=== PATIENT | female | born 1965 | race Caucasian/White ===

== ENCOUNTER 2020-04-19 12:06 | Emergency (ER) | payer BC, SELFPAY ==
--- NOTE | ~2020-04-19 | XR_ITS ---
EXAMINATION: XR chest 2V 04/19/2020 12:44 INDICATION: Cough with fever PROCEDURE: 2 view chest COMPARISON: 03/20/2012 FINDINGS: The lungs are clear. The cardiomediastinal silhouette is within normal limits. There are no pleural effusions. There is no pneumothorax suspected. IMPRESSION: 1: NO ACUTE CARDIOPULMONARY DISEASE. Reviewed, dictated and finalized at location B.
[2020-04-19 12:14] VITALS: BP 140/81; PULSE 96; RESP 16; TEMP 36.4; O2SAT 99
--- NOTE | 2020-04-19 13:00 | ED.URI ---
HPI - URI/Sore Throat General Chief Complaint: Upper Respiratory Infection Stated Complaint: congestion/sore throat/cough Time Seen by Provider: 04/19/20 12:25 Source: patient and RN notes reviewed Mode of arrival: ambulatory Limitations: no limitations History of Present Illness HPI Narrative: 54-year-old female who presents to [facility] care with complaints of a 10 days history of sinus drainage and congestion, sore throat, coughing, and fatigue. Patient has had some intermittent chills and fever with the highest temp of 100 degrees F. Patient states that she has had some upper back ache and has had some chest discomfort with cough. Patient states she called her primary care physician and received a prescription for Z-back which she completed today. Patient also states that she has had Covid testing on Wednesday which was negative MD elicited complaint: fever, cough, sore throat, rhinorrhea and nasal congestion Pertinent past history: pneumonia, sinusitis and seasonal allergies Onset (ago): day(s) (10) Consistency: constant Severity: moderate Pain scale (0-10): 5 Description of mucous: clear and yellow (light) Able to tolerate fluids by mouth: Yes Exacerbating factors: swallowing and exertion Relieving factors: NSAID and rest Associated symptoms: fever, rhinorrhea, nasal congestion, sore throat, cough (wheeing) and nausea Treatments prior to arrival: ibuprofen and other (Mucinex DM, claritin, Zithromax from PCP) Related Data Allergies Allergy/AdvReac Type Severity Reaction Status Date / Time No Known Allergies Allergy Mild Unverified 06/11/11 08:39 Review of Systems Review of Systems: Narrative: CONSTITUTIONAL: Positive fevers, chills, or sweats. EYES: Denies visual changes, redness, or discharge. ENT: Positive rhinorrhea, congestion,facial pressure, sore throat, no otalgia. CARDIOVASCULAR: Denies chest pain, reports ache with cough,no palpitations, or edema. RESPIRATORY: positive cough no shortness of breath verbalizes some wheezing noted. GASTROINTESTINAL: Denies abdominal pain, occasional nausea, no vomiting, or diarrhea. GENITOURINARY: Denies dysuria or hematuria. SKIN: Denies rash or itching. MUSCULOSKELETAL: States upper back ache, no acute joint pain, or myalgia. NEUROLOGIC: Denies headache, numbness, or weakness. PSYCHIATRIC: Denies anxiety or depression. All systems reviewed & are unremarkable except as noted in HPI and below PMFSH Past Medical History Medical History (Updated 04/19/20 @ 13:34 by Rebeka Hassan NP) Bronchitis Seasonal allergies Surgical History Surgical History (Updated 04/19/20 @ 13:37 by Rebeka Hassan NP) H/O section History of colon resection History of endometrial ablation History of tubal ligation Hx of appendectomy Family History Family History (Updated 04/19/20 @ 13:38 by Rebeka Hassan NP) Father COPD (chronic obstructive pulmonary disease) Social History Social History (Updated 04/19/20 @ 13:38 by Rebeka Hassan NP) Smoking status: Never smoker Alcohol intake: current Substance use: never Living arrangements: with family Gender identity (if verbalized by the patient): Female Comments At time of signature, agree with nursing past medical, surgical, social and family history. There is no relevant family history pertinent to the presenting complaint Exam Narrative: Exam Narrative: GENERAL: Well-appearing, well-nourished, and in no acute distress. HEAD: Normocephalic, atraumatic. EYES: PERRLA and EOMI. ENT: Nares red,clear rhinorrhea no epistaxis. Mucous membranes moist.TM's intact with dull light reflex, throat mild redness with uvula swollen and pain, no exudates no acute swelling of tonsils,post nasal drainage present. NECK: Supple.no lymphadenopathy CHEST: Clear to auscultation. No respiratory distress.SAO2 99% on room air HEART: Regular rate and rhythm. No murmur heard. Normal peripheral pulses. ABDOMEN: Soft, nontender, nondistended, nor
== END 2020-04-19 13:21 | disposition home or self-care (01) ==
PROVIDERS: Emergency Provider Registered Nurse; PCP Family Medicine Sports Medicine
DX: R05 Cough (principal); J01.40 Acute pansinusitis, unspecified; J06.9 Acute upper respiratory infection, unspecified
CPT/HCPCS: 71046; 87081; 87880; 99213; G0463

== ENCOUNTER 2022-02-17 22:38 | Observation (INO) | payer OTHER, SELFPAY ==
--- NOTE | ~2022-02-17 | XR_ITS ---
EXAMINATION: XR chest 2V DATE: 02/17/2022 23:17 INDICATION: Chest pain. TECHNIQUE: Frontal and lateral views of the chest were obtained. COMPARISON: Chest 2 views 04/19/2020, chest CT 02/18/2022 FINDINGS: The chest demonstrates clear lungs without pneumonia, pleural effusion, or pneumothorax. Th e heart size is normal. IMPRESSION: 1. No acute cardiopulmonary disease. Reviewed, dictated and finalized at location A.
--- NOTE | ~2022-02-17 | CT_ITS ---
EXAMINATION: CTA chest PE protocol DATE: 02/18/2022 01:03 INDICATION: Chest pain. TECHNIQUE: Computed tomography angiography (CTA) of the chest was performed with 100 mL Omnipaque-350 intravenous contrast timed to evaluate the pulmonary arteries. Coronal maximum intensity projection 3D-reconstructions were created by the technologist. Automated exposure control and iterative reconst ruction technique were employed. The dose-length product was 390.18 mGy-cm. COMPARISON: CT abdomen and pelvis 08/16/2018 FINDINGS: The lungs demonstrate mild atelectasis. No pleural effusion. The heart size is normal. No p ericardial effusion. There is no pulmonary embolus. There is mild thoracic spondylosis. There is mild chronic anterior wedging of T7 vertebral body. IMPRESSION: 1. No pulmonary embolus. Reviewed, dictated and finalized at location A. IMPRESSION: 1. No pulmonary embolus.
--- NOTE | 2022-02-17 22:37 | ED.CHESTPAIN ---
HPI - Chest Pain General Chief Complaint: Chest Pain Stated Complaint: cp Source: patient Mode of arrival: ambulatory Limitations: no limitations History of Present Illness HPI narrative: Patient is a 56-year-old female with a history of hyperlipidemia presenting to the emergency department for evaluation of chest pain. Patient reports she had sudden onset acute left-sided chest pain with radiation to the left neck, shoulder, arm. Patient took 3 nitroglycerin tablets at home which did not improve the pain much. Patient was then given Nitropaste in route by EMS which did help alleviate her pain. She was also given 3 baby aspirin. Patient reports she was recently seen by [facility] tearoom host/hostess yesterday, and referred for stress test John. Patient denies history of cardiac event in the past but does report she has had intermittent chest pain at rest over the past 4 weeks. Patient denies leg swelling or calf pain. Denies recent long car or air travel. No history of coagulopathy. She does not smoke. Related Data Allergies Allergy/AdvReac Type Severity Reaction Status Date / Time sulfamethoxazole AdvReac Dizziness Verified 02/17/22 22:54 [From Bactrim] trimethoprim [From Bactrim] AdvReac Dizziness Verified 02/17/22 22:54 Review of Systems Review of Systems: CONSTITUTIONAL: Denies fever, chills, or sweats. EYES: Denies visual changes, redness, or discharge. ENT: Denies rhinorrhea, congestion, sore throat, or otalgia. CARDIOVASCULAR: Reports chest pain, denies palpitations or leg edema RESPIRATORY: Denies cough or dyspnea. GASTROINTESTINAL: Denies abdominal pain, reports nausea without vomiting GENITOURINARY: Denies dysuria or hematuria. SKIN: Denies rash or itching. MUSCULOSKELETAL: Denies back pain, joint pain, or myalgia. NEUROLOGIC: Denies headache, numbness, or weakness. [facility] Past Medical History Medical History Bronchitis Seasonal allergies Surgical History Surgical History H/O section History of colon resection History of endometrial ablation History of tubal ligation Hx of appendectomy Family History Family History Father COPD (chronic obstructive pulmonary disease) Social History Social History Smoking status: Never smoker Alcohol intake: current Substance use: never Gender identity (if verbalized by the patient): Female Exam Narrative: GENERAL: Awake, alert, conversant HEAD: Normocephalic, atraumatic. EYES: PERRLA and EOMI. ENT: Nares clear, no rhinorrhea or epistaxis. Mucous membranes moist. NECK: Supple. CHEST: No respiratory distress, breathing even and non labored, no chest wall tenderness HEART: Regular rate, sinus rhythm ABDOMEN:Non distended, non tender EXTREMITIES: Normal range of motion. No edema. SKIN: Warm, dry, no rash. NEURO:No focal deficits. Alert and oriented x3 Course Vital Signs Vital signs: Vital Signs Temperature 36.5 C 02/17/22 22:41 Pulse Rate 83 02/17/22 22:41 Respiratory Rate 16 02/17/22 22:41 Blood Pressure 130/65 02/17/22 22:41 Pulse Oximetry 97 02/17/22 22:41 Oxygen Delivery Room Air 02/17/22 22:41 Temperature 36.5 C 02/17/22 22:41 Pulse Rate 78 02/18/22 03:34 Respiratory Rate 18 02/18/22 03:34 Blood Pressure 110/61 02/18/22 03:34 Pulse Oximetry 96 02/18/22 03:34 Oxygen Delivery Room Air 02/17/22 22:41 MDM - Chest Pain MDM Narrative Medical decision making narrative: Patient presenting for evaluation of chest pain. At the time of assessment, patient is having active chest pain, EKG without acute ischemic changes but there are some inferior changes and evidence of Q waves inferiorly concerning for previous infarct. IV access obtained and labs are drawn. Labo
--- NOTE | 2022-02-17 22:40 | ECG_ITS ---
Measurements Intervals [place] Rate: 82 P: 43 NM: 135 QRS: 8 QRSD: 82 T: 39 QT: 383 QTc: 448 Interpretive Statements SINUS RHYTHM NORMAL ECG NO PREVIOUS ECG AVAILABLE FOR COMPARISON Electronically Signed On 02-18-2022 16:02:13 CDT by Bryant Estrada M.D.
[2022-02-17 22:41] VITALS: BP 130/65; PULSE 83; RESP 16; TEMP 36.5; O2SAT 97
[2022-02-17 23:04] LABS: Basophils Percent Auto 0.3 % (0.2-1.2); Eosinophils Absolute Auto 0.1 K/mm3 (0-0.3); Eosinophils Percent Auto 1.3 % (0-4.4); Hematocrit 36.4 % (37.0-47.0); Hemoglobin 12.3 g/dL (12.0-15.0); Immature Granulocyte Absolute 0.02 K/mm3 (0.00-0.031); Immature Granulocyte Percent A 0.2 % (0-0.5); Lymphocytes Absolute Auto 2.89 K/mm3 (0.9-3.2); Lymphocytes Percent Auto 30.5 % (18.3-44.2); Mean Corpuscular HGB Conc 33.8 g/dl (32-36); Mean Corpuscular Hemoglobin 30.5 pg (26-34); Mean Corpuscular Volume 90.3 fl (80-100); Mean Platelet Volume 9.4 fl (7.4-10.4); Monocytes Absolute Auto 0.6 K/mm3 (0.1-0.6); Neutrophils Absolute Auto 5.8 K/mm3 (1.3-6.7); Neutrophils Percent Auto 61.7 % (45.5-73.1); Platelet Count Result 369 k/mm3 (150-375); Red Blood Count 4.03 M/mm3 (4.2-5.4); Red Cell Distribution Width 12.9 % (11.5-14.5); White Blood Count 9.5 K/mm3 (4.5-10.0)
[2022-02-17 23:06] VITALS: BP 116/64; PULSE 80; RESP 19; O2SAT 93
[2022-02-17 23:15] LABS: Alanine Aminotransferase 57 U/L (6-35); Albumin Level 4.4 g/dL (3.5-5.1); Alkaline Phosphatase 101 U/L (38-126); Anion Gap 10 mmol/L (8-16); Aspartate Amino Transferase 46 U/L (14-36); Bilirubin,Total 0.8 mg/dL (0.2-1.3); Blood Urea Nitrogen 12 mg/dL (7-17); Calcium 9.4 mg/dL (8.4-10.2); Carbon Dioxide 25 mmol/L (22-30); Chloride 101 mmol/L (98-107); Estimated CRCL calculation 81 ml/min; Estimated Glomerular Filt Rate > 60; Glucose 134 mg/dL (65-110); Lipase 80 U/L (23-300); Potassium 3.8 mmol/L (3.4-5.0); Sodium 136 mmol/L (137-145)
[2022-02-17] MEDS: SODIUM CHLORIDE 0.9% IV 1,000 ML 999 ML IV CONT (23:16)
[2022-02-17] MEDS: ONDANSETRON INJ 4 MG/2 ML VIAL IV PUSH (23:17)
[2022-02-17] MEDS: MORPHINE SULFATE (*CRX) 4 MG/ML INJ IV PUSH (23:18)
[2022-02-17 23:22] VITALS: BP 117/62; PULSE 78; RESP 12; O2SAT 93
[2022-02-17 23:24] LABS: INR 1.1; Prothrombin Time 13.3 Seconds (11.1-14.7)
[2022-02-17 23:25] LABS: Partial Thromboplastin Time 37.1 SECONDS (22.3-36.8)
[2022-02-17 23:26] LABS: Troponin I < 0.012 ng/mL (0.000-0.034)
[2022-02-18] MEDS: KETOROLAC 15 MG/ML VIAL (*BKC) IV PUSH ×2 (01:11→03:31)
[2022-02-18 02:12] LABS: Troponin I < 0.012 ng/mL (0.000-0.034)
[2022-02-18 03:34] VITALS: BP 110/61; PULSE 78; RESP 18; O2SAT 96
[2022-02-18 04:40] VITALS: BP 103/52; PULSE 68; RESP 16; TEMP 36.2; O2SAT 96; BMI 30.2
--- NOTE | 2022-02-18 05:01 | PC.NURSE ---
This patient, Mikaela Garcia, was admitted to IMU Room 214-01. Patient/family oriented to hospital policies and general routines including ID bracelet, bed and alarms, visiting hours, pain management, procedures, bathroom and other care routines, personal items, smoking policy, room service/diet, and visiting hours. Information on how to activate the Rapid Response Team has been discussed. Patient/Family are encouraged to report perceived risks to care and to ask questions if they do not understand what they are told or what they should do.
[2022-02-18 05:41] LABS: Troponin I < 0.012 ng/mL (0.000-0.034)
[2022-02-18 06:00] VITALS: PULSE 68
[2022-02-18 07:51] LABS: Alanine Aminotransferase 48 U/L (6-35); Albumin Level 3.8 g/dL (3.5-5.1); Alkaline Phosphatase 82 U/L (38-126); Anion Gap 6 mmol/L (8-16); Aspartate Amino Transferase 37 U/L (14-36); Bilirubin,Total 0.6 mg/dL (0.2-1.3); Blood Urea Nitrogen 11 mg/dL (7-17); Calcium 8.5 mg/dL (8.4-10.2); Carbon Dioxide 28 mmol/L (22-30); Chloride 103 mmol/L (98-107); Estimated CRCL calculation 83 ml/min; Estimated Glomerular Filt Rate > 60; Glucose 124 mg/dL (65-110); Potassium 3.6 mmol/L (3.4-5.0); Sodium 137 mmol/L (137-145)
[2022-02-18 08:00] VITALS: BP 116/56; PULSE 68; PULSE 75; RESP 14; TEMP 36.4; O2SAT 97
[2022-02-18 08:29] LABS: Glucose Point of Care 113 mg/dl (65-105)
[2022-02-18] MEDS: ACETAMINOPHEN 325 MG TABLET 650 MG PO (08:39)
[2022-02-18] MEDS: PANTOPRAZOLE 40 MG TABLET PO (08:44)
[2022-02-18] MEDS: ASPIRIN 81 MG ENTERIC TABLET PO (08:44)
[2022-02-18] MEDS: FLUoxetine HCL 20 MG CAPSULE PO (08:44)
--- NOTE | 2022-02-18 09:22 | PM.IMHP ---
H&P: HPI History of Present Illness Date/Time: 02/18/22 09:22 Chief Complaint: Chest pain Narrative: Greater than 30 minutes spent reviewing chart, evaluating, treating, counseling patient. Anticipate less than 48 hour admission, will admit under observation. 56-year-old female past medical history of anxiety, hyperlipidemia, DM noninsulin. Presented to [place] 02/17 with chest pain. Patient reports he was sitting down when she began to have sharp chest pain on the left side of her chest. Nonradiating, not associated with any shortness of breath or nausea/vomiting. Patient does report that she felt her stomach was upset prior to the event and she took some Tums. Patient reports she has had some minor ongoing shortness of breath since 11/2021, reports she was diagnosed with COVID at that time. Her PCP sent her to a supervisor mapping, Dr. Herron, at [facility] for further workup. She was scheduled for a stress test this Wednesday. Patient reports she has had chest pain before, but nothing like this. She reports this chest pain was ongoing despite taking nitro and receiving morphine and Toradol. She states this a.m. that her chest pain is very much improved. Patient reports a lot of anxiety at home, her relationship with her is under lot of stress. She was just recently diagnosed with anxiety 2 weeks ago and started on Prozac last week and started seeing a therapist 2 weeks ago. In ED, vitals stable. Labs remarkable for AST/ALT 46/47. Troponin x3 negative, EKG showing normal sinus rhythm. Cardiology consult in ED. Review of Systems Review of Systems: Ten point ROS reviewed, negative unless otherwise specified per [facility] Past Medical History Medical History Bronchitis Seasonal allergies Surgical History Surgical History H/O section History of colon resection History of endometrial ablation History of tubal ligation Hx of appendectomy Family History Family History (Updated 02/18/22 @ 04:51 by Lazara Holm RN) Father COPD (chronic obstructive pulmonary disease) Diabetes mellitus Social History Social History Smoking status: Never smoker Alcohol intake: former Drinks per week: 1 Substance use: never Gender identity (if verbalized by the patient): Female Spiritual care concerns: No Meds Home Medications and Allergies Home Medications Medication Instructions Recorded Confirmed Type fluoxetine 20 mg capsule 20 mg PO DAILY 02/18/22 02/18/22 History metformin 500 mg tablet,extended 1,000 mg PO DAILY 02/18/22 02/18/22 History release 24 hr nitroglycerin 0.4 mg sublingual 0.5 mg sublingual Q5MIN PRN Angina 02/18/22 02/18/22 History tablet pantoprazole 40 mg tablet,delayed 40 mg PO DAILY 02/18/22 02/18/22 History release rosuvastatin 20 mg tablet 20 mg PO HS 02/18/22 02/18/22 History Allergies Allergy/AdvReac Type Severity Reaction Status Date / Time sulfamethoxazole AdvReac Dizziness Verified 02/18/22 04:39 [From Bactrim] trimethoprim [From Bactrim] AdvReac Dizziness Verified 02/18/22 04:39 Vital Signs Vital Signs - 24 hr 02/17/22 22:41 02/17/22 23:06 02/17/22 23:22 Temperature 97.7 F Pulse Rate 83 80 78 Respiratory Rate 16 19 12 Blood Pressure 130/65 116/64 117/62 Pulse Oximetry 97 93 93 Oxygen Delivery Room Air 02/18/22 03:34 02/18/22 04:42 02/18/22 04:40 Temperature 97.1 F L Pulse Rate 78 68 Respiratory Rate 18 16 Blood Pressure 110/61 103/52 L Pulse Oximetry 96 96 Oxygen Delivery Room Air 02/18/22 06:00 02/18/22 08:00 Temperature 97.6 F Pulse Rate 68 68 Respiratory Rate 14 Blood Pressure 116/56 L Pulse Oximetry 97 Oxygen Delivery Exam Const: General: comfortable and no acute distress Eyes: General: appearance normal, both eye
[2022-02-18 09:26] LABS: Magnesium 1.9 mg/dL (1.6-2.3)
[2022-02-18 09:57] LABS: Hemoglobin A1C 6.8 % (<5.7)
[2022-02-18 10:00] VITALS: PULSE 75
--- NOTE | 2022-02-18 10:10 | PM.CNCAR ---
Assessment and Plan Assessment and plan (1) Atypical chest pain: Code(s): R07.89 - Other chest pain Status: Acute Assessment and Plan: Atypical chest pain occurring at rest not associated with exertion with chronic shortness of breath she attributes to history of COVID. She has no prior known history of CAD. She has ruled out for myocardial infarction with serial negative troponin. Twelve EKG is without acute ischemic changes. Patient is asymptomatic at this time and otherwise feels well and at her baseline. We discussed options including proceed with noninvasive ischemic evaluation this hospitalization for discharge to follow-up with her tribal council member with noninvasive stress test as scheduled this Wednesday on an outpatient basis. Patient states she is comfortable for discharge and to follow up with her tribal council member. I reassured the patient given fact that she had several hours of chest pain which was constant prior to admission negative enzymes without acute ischemic EKG changes during that period time the likelihood of her having severe obstructive CAD as explanation is quite low although not impossible given her risk factors. Therefore, I do believe an ischemic evaluation is appropriate but that she is safe for discharge to follow up as an outpatient. Obviously, if her symptoms recur she is to present to the emergency department for further evaluation. She may continue aspirin 81 mg daily for the time being. Stable for discharge home today to follow up with her tribal council member as an outpatient and schedule stress test this Wednesday. All questions answered to her satisfaction. Patient verbalized understanding and agreed with plan of care as outlined. (2) Hyperlipidemia: Qualifiers: Hyperlipidemia type: mixed hyperlipidemia Qualified Code(s): E78.2 - Mixed hyperlipidemia Code(s): E78.5 - Hyperlipidemia, unspecified Status: Acute Assessment and Plan: Continue rosuvastatin 20 mg at bedtime. (3) Diabetes: Code(s): E11.9 - Type 2 diabetes mellitus without complications Status: Acute Assessment and Plan: Management primary service. Continue metformin. (4) Anxiety: Code(s): F41.9 - Anxiety disorder, unspecified Status: Acute Assessment and Plan: Patient admits anxiety may be contributing to some extent as her symptoms are onset with heightened anxiety. I explained while it is likely her anxiety is contributing heightened emotional states can precipitate anginal symptoms with underlying obstructive CAD. Therefore, further assessment is warranted in addition to stress coping strategies in this regard. History of Present Illness History of Present Illness Consult date/time: Date of service: 02/18/22 10:10 Requesting physician: Cole Gunn DO Consult reason: chest pain Reason For Visit: Unstable Angina Narrative: Patient is a pleasant 56-year-old female with a past medical history significant for type 2 diabetes mellitus, hypertension, hyperlipidemia and anxiety who presented to the emergency department with complaints of chest pain. Patient ate she has had difficulty with shortness of breath and chest pain since she had COVID in October and admits to some ongoing fatigue. She states she has had intermittent shortness of breath as well in due to the symptoms was referred to a tribal council member which she for soft last week. Date set her up for a stress test this Wednesday. She describes chest pain is sharp in nature left substernal and upper left location radiating to her shoulder and arm. She denies significant associated shortness of breath, nausea or diaphoresis. She has also had some pain in the right abdomen which has resolved intermittently. Serial troponin negative. Her 12 lead EKG does not reveal acute ischemic changes. She has no prior known history of CAD. She tried 3 sublingual nitroglycerin at home provided by her tribal council member with no relief. She w
[2022-02-18] MEDS: MAGNESIUM OXIDE 400 MG TABLET PO (10:50)
[2022-02-18 12:00] VITALS: BP 116/64; PULSE 70; PULSE 75; RESP 16; TEMP 36.4; O2SAT 95
[2022-02-18 12:43] LABS: Glucose Point of Care 230 mg/dl (65-105)
--- NOTE | 2022-02-18 12:44 | PM.DS ---
DS: Admitting Diagnosis Discharge Date 02/18/2022 Admitting Diagnosis Atypical chest pain DS: Summary Hospital Course Reason for hospitalization: Atypical chest pain Hospital Course: 56-year-old female past medical history of anxiety, hyperlipidemia, DM noninsulin.? Presented to [facility] 02/17 with chest pain.? Patient reports he was sitting down when she began to have sharp chest pain on the left side of her chest.? Nonradiating, not associated with any shortness of breath or nausea/vomiting.? Patient does report that she felt her stomach was upset prior to the event and she took some Tums.? Patient reports she has had some minor ongoing shortness of breath since 11/2021, reports she was diagnosed with COVID at that time.? Her PCP sent her to a program manager slp, Dr. Herron, at [facility] for further workup.? She was scheduled for a stress test this Wednesday.? Patient reports she has had chest pain before, but nothing like this.? She reports this chest pain was ongoing despite taking nitro and receiving morphine and Toradol.? She states this a.m. that her chest pain is very much improved.? Patient reports a lot of anxiety at home, her relationship with her is under lot of stress.? She was just recently diagnosed with anxiety 2 weeks ago and started on Prozac last week and started seeing a therapist 2 weeks ago. In ED, vitals stable.? Labs remarkable for AST/ALT 46/47.? Troponin x3 negative, EKG showing normal sinus rhythm.? Cardiology consult in ED, recommend following up with outpatient program manager slp with stress test scheduled for this Wednesday. Patient was started on aspirin, other home meds continued and discharged home in stable condition. Time Spent with Patient Time attestation: Total time spent providing and/or coordinating discharge services: Exam Narrative: General: Well developed, alert and oriented x3. No apparent distress, comfortable, pleasant, and cooperative. Head: atraumatic, normocephalic Eyes: EOM intact, sclerae anicteric, conjunctivae unremarkable Ears/Nose: external inspection of ears and nose were grossly normal Mouth/Throat: oral mucosa pink and moist Neck: supple, normal range of motion, no jugular venous distention or carotid bruits, thyroid nonpalpable, trachea midline. Cardiac: Regular rate and rhythm, normal S1-S2, no murmurs, clicks, gallops, or rubs. Lungs: Clear to auscultation bilaterally, no rales, wheezes, or rhonchi. Abdomen: Soft, nontender, nondistended, positive bowel sounds throughout. No appreciable hepatosplenomegaly, no rebound guarding or rigidity noted. Abdominal aorta nonpalpable, no appreciable bruits. Extremities: No edema, clubbing, and or cyanosis. Extremities warm and well perfused. Skin: Warm and dry without ecchymoses, rashes, and/or petechiae. Musculoskeletal: Muscle strength and tone intact throughout without obvious deformities. Vascular: Carotid upstrokes 2+ bilaterally, radial pulses 2+ bilaterally, dorsalis pedis pulses 2+ bilaterally, posterior tibialis pulses palpable bilaterally. Neurologic: Cranial nerves 2-12 grossly intact, examination grossly nonfocal Psychiatric: Mood calm and appropriate. DS: Data Data Completed and Pending Labs on day of discharge: Labs from last 24 hours 02/18/22 02/18/22 02/18/22 12:11 08:25 04:58 WBC RBC Hgb Hct MCV MCH MCHC RDW Plt Count MPV Immature Gran % (Auto) Neut % (Auto) Lymph % (Auto) [place] % (Auto) Eos % (Auto) Baso % (Auto) Lymph # (Auto) [place] # (Auto) Eos # (Auto) Baso # (Auto) Abs Immat Gran (auto) Absolute Neuts (auto) Absolute Nucleated RBC Nucleated RBC % PT INR APTT Sodium Potassium Chloride Carbon Dioxide Anion Gap BUN Creatinine Estim Creat Clear Calc Estimated GFR Glucose POC Capillary Glucose 230 H 113 H Hemoglobin A1c Calcium
--- NOTE | 2022-02-18 13:00 | WPDNEURCNPN ---
Consult date: 02/18/22 Time Seen: 11:00 HPI: Mikaela Garcia is a 56 year old female admitted to the hospital through the emergency the complaints of chest pain of sudden onset located in the left-sided chest area with radiation to the left side of the neck and history of taking 3 nitroglycerin tablets at home with no improvement in the pain followed by nitro paste and route by EMS which did not alleviate pain followed by 3 baby aspirin and history that she has been referred for the stress test on Wednesday for the complaints of intermittent chest pain, history of colon resection. History of no smoking no substance use normal initial examination in the emergency room with normal vital signs negative CTA for the acute PE negative serum troponin normal EKG admitted for atypical chest pain Review of Systems Review of Systems: All systems reviewed & are unremarkable except as noted in HPI and below PMFSH Past Medical History Medical History Bronchitis Seasonal allergies Surgical History Surgical History H/O section History of colon resection History of endometrial ablation History of tubal ligation Hx of appendectomy Family History Family History Father COPD (chronic obstructive pulmonary disease) Diabetes mellitus Social History Social History Smoking status: Never smoker Alcohol intake: former Drinks per week: 1 Substance use: never Gender identity (if verbalized by the patient): Female Spiritual care concerns: No Meds Home Medications and Allergies Home Medications Medication Instructions Recorded Confirmed Type aspirin 81 mg tablet,delayed 81 mg PO QAM #30 tabs 02/18/22 Rx release fluoxetine 20 mg capsule 20 mg PO DAILY 02/18/22 02/18/22 History metformin 500 mg tablet,extended 1,000 mg PO DAILY 02/18/22 02/18/22 History release 24 hr nitroglycerin 0.4 mg sublingual 0.5 mg sublingual Q5MIN PRN Angina 02/18/22 02/18/22 History tablet pantoprazole 40 mg tablet,delayed 40 mg PO DAILY 02/18/22 02/18/22 History release rosuvastatin 20 mg tablet 20 mg PO HS 02/18/22 02/18/22 History Allergies Allergy/AdvReac Type Severity Reaction Status Date / Time sulfamethoxazole AdvReac Dizziness Verified 02/18/22 04:39 [From Bactrim] trimethoprim [From Bactrim] AdvReac Dizziness Verified 02/18/22 04:39 Vital Signs Vital Signs - 24 hr 02/17/22 22:41 02/17/22 23:06 02/17/22 23:22 Temperature 36.5 C Pulse Rate 83 80 78 Respiratory Rate 16 19 12 Blood Pressure 130/65 116/64 117/62 Pulse Oximetry 97 93 93 Oxygen Delivery Room Air 02/18/22 03:34 02/18/22 04:42 02/18/22 04:40 Temperature 36.2 C L Pulse Rate 78 68 Respiratory Rate 18 16 Blood Pressure 110/61 103/52 L Pulse Oximetry 96 96 Oxygen Delivery Room Air 02/18/22 06:00 02/18/22 08:00 02/18/22 08:00 Temperature 36.4 C Pulse Rate 68 68 Respiratory Rate 14 Blood Pressure 116/56 L Pulse Oximetry 97 Oxygen Delivery Room Air 02/18/22 08:00 02/18/22 10:00 02/18/22 12:00 Temperature 36.4 C L Pulse Rate 75 75 75 Respiratory Rate 16 Blood Pressure 116/64 Pulse Oximetry 95 Oxygen Delivery 02/18/22 12:00 02/18/22 12:00 Temperature Pulse Rate 70 Respiratory Rate Blood Pressure Pulse Oximetry Oxygen Delivery Room Air Results Labs CBC & Chem 7: 02/17/22 22:56 02/18/22 04:56 Labs: Short CBC 02/17/22 Range/Units 22:56 WBC 9.5 (4.5-10.0) K/mm3 Hgb 12.3 (12.0-15.0) g/dL Hct 36.4 L (37.0-47.0) % Plt Count 369 (150-375) k/mm3 BMP 02/17/22 02/18/22 22:56 04:56 Sodium 136 L 137 Potassium 3.8 3.6 Chloride 101 103 Carbon Dioxide 25 28 BUN 12 11 Creatinine 0.70 0.70
== END 2022-02-18 13:12 | disposition home or self-care (01) ==
LOC: ANHED 02-18 03:42 → ANHIMU 02-18 12:44
PROVIDERS: Admitting Provider Internal Medicine; Emergency Provider Emergency Medicine; PCP Student in an Organized Health Care Education/Training Program; Visit Provider Internal Medicine
DX: R07.89 Other chest pain (principal); R74.01 Elevation of levels of liver transaminase levels; E78.5 Hyperlipidemia, unspecified; E11.9 Type 2 diabetes mellitus without complications; F41.9 Anxiety disorder, unspecified; Z86.16 Personal history of COVID-19
CPT/HCPCS: 36415; 71046; 71275; 80053; 82948; 83036; 83690; 83735; 84484; 85025; 85610; 85730; 93005; 96361; 96374; 96375; 99285; A9270; G0378; J1885; J2270; J2405; J7030; Q9967